=== PATIENT | female | born 1990 | race American Indian/Alaskan Native ===

== ENCOUNTER 2018-06-22 05:50 | Emergency (ER) | payer SELFPAY ==
[2018-06-22 05:55] VITALS: BP 140/99
== END 2018-06-22 06:05 | disposition left against medical advice (07) ==
LOC: ED 05:50
DX: R09.89 Other specified symptoms and signs involving the circulatory and respiratory systems (principal); Z53.21 Procedure and treatment not carried out due to patient leaving prior to being seen by health care provider
CPT/HCPCS: 87116; 87430

== ENCOUNTER 2021-11-03 17:58 | Emergency (ER) | payer SELFPAY ==
[2021-11-03 18:08] VITALS: BP 152/83
--- NOTE | 2021-11-03 22:52 | Emergency Department Report ---
ED Female HPI - General Chief complaint: Skin/Abscess/Foreign Body Stated complaint: tampon stuck in vagina Time Seen by Provider: 11/03/21 20:40 Source: patient Mode of arrival: Ambulatory Limitations: No Limitations - History of Present Illness Initial comments: 31-year-old male female is emerged from complaining of foreign body in vaginal vault while in the form of a tampon was been present for the last 3 to 4 days. No pain involved but she is unable to retrieve and presents emerge department seeking help to remove -: Gradual Worsens with: none Are you Now?: No Associated Symptoms: denies other symptoms - Related Data Previous Rx's Medication Instructions Recorded Last Taken Type Sulfamethoxazole/Trimethoprim 1 each PO BID #14 tablet 08/09/13 Unknown Rx [Bactrim DS] metroNIDAZOLE [Flagyl] 500 mg PO BID #14 tablet 08/09/13 Unknown Rx DOXYCYCLINE Hyclate [Vibramycin 100 mg PO Q12HR #20 capsule 11/03/21 Unknown Rx CAP] metroNIDAZOLE [Flagyl] 500 mg PO Q12HR #10 tab 11/03/21 Unknown Rx Allergies Allergy/AdvReac Type Severity Reaction Status Date / Time No Known Allergies Allergy Verified 11/03/21 18:08 ED Review of Systems ROS: Stated complaint: tampon stuck in vagina Other details as noted in HPI Comment: All other systems reviewed and negative ED Past Medical Hx - Past Medical History Previous Medical History?: No - Social History Smoking Status: Former Smoker Substance Use Type: None - Medications Home Medications: Home Medications Medication Instructions Recorded Confirmed Last Taken Type Sulfamethoxazole/Trimethoprim 1 each PO BID #14 tablet 08/09/13 Unknown Rx [Bactrim DS] metroNIDAZOLE [Flagyl] 500 mg PO BID #14 tablet 08/09/13 Unknown Rx DOXYCYCLINE Hyclate [Vibramycin 100 mg PO Q12HR #20 capsule 11/03/21 Unknown Rx CAP] metroNIDAZOLE [Flagyl] 500 mg PO Q12HR #10 tab 11/03/21 Unknown Rx ED Physical Exam - General Limitations: No Limitations General appearance: alert, in no apparent distress - Head Head exam: Present: atraumatic, normocephalic - Eye Eye exam: Present: normal appearance - ENT ENT exam: Present: mucous membranes moist - Neck Neck exam: Present: normal inspection - Respiratory Respiratory exam: Present: normal lung sounds bilaterally. Absent: respiratory distress - Cardiovascular Cardiovascular Exam: Present: regular rate, normal rhythm. Absent: systolic murmur, diastolic murmur, rubs, gallop - GI/Abdominal GI/Abdominal exam: Present: soft, normal bowel sounds. Absent: tenderness, guarding - Speculum exam: Present: foreign body (Tampon is visualized on exam patient with some discharge.) Bi-manual exam: Present: normal bi-manual exam. Absent: cervical motion tender kathleen - Extremities Exam Extremities exam: Present: normal inspection - Back Exam Back exam: Present: normal inspection. Absent: tenderness - Neurological Exam Neurological exam: Present: alert, oriented X3 - Psychiatric Psychiatric exam: Present: normal affect, normal mood - Skin Skin exam: Present: warm, dry, intact, normal color. Absent: rash ED Course Vital Signs 11/03/21 18:08 Temperature 9837 F H Pulse Rate 86 Respiratory 16 Rate Blood Pressure 152/83 [Right] O2 Sat by Pulse 100 Oximetry - Procedure Description Procedures done: Forceps used to remove tampon in the vaginal canal with no complications. Critical care attestation.: If time is entered above; I have spent that time in minutes in the direct care of this critically ill patient, excluding procedure time. ED Disposition Clinical Impression: Vaginal foreign body, Vaginal discharge Disposition: HOME / SELF CARE / HOMELESS Is pt being admited?: No Does the pt Need Aspirin: No Condition: Stable Instructions: Vaginal Foreign Body, Vaginitis Prescriptions: metroNIDAZOLE [Flagyl] 500 mg PO Q12HR #10 tab DOXYCYCLINE Hyclate [Vibramycin CAP] 100 mg PO Q12HR #20 capsule Referrals: PRIMARY CAREMD [Primary Care Provider] - 3-5 Days [facility] [Provider Group] - 3-5 Days
== END 2021-11-03 23:20 | disposition home or self-care (01) ==
LOC: ED 17:58
DX: T19.2XXA Foreign body in vulva and vagina, initial encounter (principal); X58.XXXA Exposure to other specified factors, initial encounter; Y93.89 Activity, other specified; Y92.89 Other specified places as the place of occurrence of the external cause; Y99.8 Other external cause status
CPT/HCPCS: 99283